=== PATIENT | female | born 1995 | race African-American/Black ===

== ENCOUNTER 2017-12-17 12:59 | Emergency (ER) | payer SELFPAY ==
[2017-12-17] MEDS ORDERED: NITROFURAN MACRO 100 MG CAP PO ONE (13:45)
[2017-12-17 13:50] LABS: Absolute Lymphocytes (CBC) 2.8 K/uL (0.7-4.9); Absolute Monocytes 0.8 K/uL (0.1-1.3); Absolute Neutrophil 11.8 K/uL (1.8-8.0); Basophils % 0.8 % (0-1.3); Eosinophils % 1.2 % (0-4.4); Hematocrit 42.1 % (36.0-45.0); Lymphocytes % 17.9 % (15.3-44.8); MCV 84.3 fL (80-100); MPV 8.2 fL (7.6-11.3); Monocytes % 4.9 % (3.3-12.3); RBC Red Blood Cell Count 4.99 M/uL (3.86-4.86)
[2017-12-17 14:17] LABS: BUN Blood Urea Nitrogen 8 mg/dL (6-20); Bicarbonate 25 mEq/L (21-31); Glucose Level 106 mg/dL (65-120); Potassium 3.4 mEq/L (3.6-5.0); Sodium Level 136 mEq/L (135-145)
[2017-12-17 14:44] LABS: Urine Bacteria >50 /HPF (<20); Urine Culture Reflex Order REFLEXED; Urine RBC 20-50 /HPF (NONE SEEN)
[2017-12-17 14:45] LABS: Urine Blood 2+ (NEG); Urine Glucose NEGATIVE (NEG); Urine Protein 2+ (NEG); Urine Specific Gravity 1.015 (1.005-1.030)
--- NOTE | 2017-12-17 15:09 | ER ---
Nurse's Notes [facility] Name: Tony Salas Age: 22 yrs Sex: Female : 1995 Arrival Date: 12/17/2017 Time: 13:02 Bed 12 Private MD: Diagnosis: Urinary tract infection, site not specified;Less than 8 weeks gestation of Presentation: 12/17 13:07 Presenting complaint: Patient states: Burning with urination and suprapubic pain since aj last night. Reports yellow discharge. Transition of care: patient was not received from another setting of care. Onset of symptoms was December 16, 2017. Initial Sepsis Screen: Does the patient meet any 2 criteria? No. Patient's initial sepsis screen is negative. Does the patient have a suspected source of infection? No. Patient's initial sepsis screen is negative. Care prior to arrival: None. 13:07 Method Of Arrival: Ambulatory aj 13:07 Acuity: MARCELLO 3 aj Triage Assessment: 13:08 General: Appears in no apparent distress. comfortable, Behavior is calm, cooperative, aj appropriate for age. Pain: Complains of pain in pelvis. Neuro: Level of Consciousness is awake, alert, obeys commands, Oriented to person, place, time, situation, Appropriate for age. Respiratory: Airway is patent Respiratory effort is even, unlabored, Respiratory pattern is regular, symmetrical. GI: No signs and/or symptoms were reported involving the gastrointestinal system. : Reports burning with urination, pain in suprapubic area. Derm: Skin is intact, is healthy with good turgor, Skin is pink, warm \T\ dry. normal. 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 - Social history:: Smoking status: Patient/guardian denies using tobacco. Screenin:10 Abuse screen: Denies threats or abuse. Denies injuries from another. Nutritional ed1 screening: No deficits noted. Tuberculosis screening: No symptoms or risk factors identified. Fall Risk None identified. Assessment: 13:10 General: Appears in no apparent distress. Behavior is calm, cooperative. Pain: ed1 Complains of pain in suprapubic area and right lower quadrant Pain does not radiate. Pain currently is 9 out of 10 on a pain scale. Quality of pain is described as burning, sharp, Pain began 1 day ago. Is continuous. Neuro: Level of Consciousness is awake, alert, obeys commands, Oriented to person, place, time, situation. Cardiovascular: Denies chest pain, Heart tones S1 S2 present Capillary refill < 3 seconds in bilateral fingers. Respiratory: Airway is patent Respiratory effort is even, unlabored, Respiratory pattern is regular, symmetrical, Breath sounds are clear bilaterally. GI: Abdomen is non-distended, Bowel sounds present X 4 quads. Abd is soft X 4 quads Abdomen is tender to palpation in suprapubic area and right lower quadrant Patient currently denies diarrhea, nausea, vomiting. : Reports burning with urination, urgency, urinary frequency, Patient is sexually active Method of control is none. EENT: No signs and/or symptoms were reported regarding the EENT system. Derm: Skin is intact, is healthy with good turgor, Skin is dry, Skin is normal, Skin temperature is warm. Musculoskeletal: Circulation, motion, and sensation intact. Range of motion: intact in all extremities. 13:10 Reassessment: I agree with assessment completed by BRIANA Haro. aa5 14:08 Reassessment: Patient appears in no apparent distress at this time. No changes from ed1 previously documented assessment. Patient and/or family updated on plan of care and expected duration. Pain level reassessed. Patient is alert, oriented x 3, equal unlabored respirations, skin warm/dry/pink. Patient states symptoms have not improved. 15:04 Reassessment: Patient appears in no apparent distress at this time. No changes from ed1 previously documented assessment. Patient and/or family updated on plan of care and expected duration. Pain level reassessed. Patient is alert, oriented x 3, equal unlabored respirations, skin warm/dry/pink. Patient states feeling better. Patient states symptoms have improved. Vital Signs: 13:08 BP 129 / 71; Pulse 91; Resp 16; Temp 98.3; Pulse Ox 99% on R/A; Weight 81.19 kg; Height aj 5 ft. 3 in. (160.02 cm); Pain 9/10; 14:08 BP 128 / 76; Pulse 87; Resp 16; Pulse Ox 100% on R/A; Pain 9/10; ed1 15:04 BP 129 / 76; Pulse 83; Resp 16; Pulse Ox 100% on R/A; Pain 7/10; ed1 13:08 Body Mass Index 31.71 (81.19 kg, 160.02 cm) ED Course: 13:02 Patient arrived in ED. sb2 13:03 Libby Butler F[facility]-C [facility]. kb 13:04 Parviz Servin MD is Attending Physician. kb 13:08 Triage completed. aj 13:08 Arm band placed on right wrist. Patient placed in an exam room. aj 13:10 Patient has correct armband on for positive identification. Call light in reach. ed1 13:21 Estrellita Browne LVN is Primary Nurse. ed1 13:48 Initial lab(s) drawn, by me, sent to lab. Urine collected: clean catch specimen, ed1 cloudy. Inserted saline lock: 20 gauge in right antecubital area, using aseptic technique. Blood collected. 14:17 No apparent distress. Resting quietly. Awaiting lab results. ed1 15:04 Resting quietly. Awaiting: Ultrasound. ed1 15:12 No provider procedures requiring assistance completed. IV discontinued, intact, ed1 bleeding controlled, No redness/swelling at site. Pressure dressing applied. Administered Medications: 13:49 Drug: Macrobid 100 mg Route: PO; ed1 14:38 Follow up: Response: No adverse reaction ed1 Outcome: 15:09 Discharge ordered by . kb 15:12 Discharged to home ambulatory. ed1 15:12 Condition: good 15:12 Discharge instructions given to patient, Instructed on discharge instructions, follow up and referral plans. medication usage, Demonstrated understanding of instructions, follow-up care, medications, Prescriptions given X 1. 15:13 Patient left the ED. ed1 Addendum: 12/20/2017 09:16 Addendum: Culture Results: Positive urine culture. No further action required. Bacteria i w sensitive to prescribed antibiotic. Signatures: Libby Butler FNP-C FNP-Cayla Pearson RN RN aj Williams, Irene, RN RN iw Calderon, Audri, RN RN aa5 Estrellita Browne LVN SSIS SSRS DEVELOPER ed1 Rafael, Radha sb2
--- NOTE | 2017-12-17 15:09 | EDPHYS ---
Physician Documentation [facility] Name: Tony Salas Age: 22 yrs Sex: Female : 1995 Arrival Date: 12/17/2017 Time: 13:02 Bed 12 Private MD: ED Physician Parviz Servin HPI: 12/17 15:10 This 22 yrs old Black Female presents to ER via Ambulatory with complaints of Pain With kb Urination, Abdominal Pain. 15:10 The patient presents with urinary symptoms, dysuria, frequency, hematuria. Onset: The kb symptoms/episode began/occurred yesterday. Modifying factors: The symptoms are alleviated by nothing, the symptoms are aggravated by urinating. Associated signs and symptoms: Pertinent positives: dysuria, hematuria, urinary frequency. Severity of symptoms: At their worst the symptoms were moderate, in the emergency department the symptoms are unchanged. The patient has not experienced similar symptoms in the past. The patient has not recently seen a physician. 15:12 Pt informed of positive test. 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 - Social history:: Smoking status: Patient/guardian denies using tobacco. ROS: 15:09 Constitutional: Negative for fever, chills, and weight loss, Eyes: Negative for injury, kb pain, redness, and discharge, Neck: Negative for injury, pain, and swelling, Cardiovascular: Negative for chest pain, palpitations, and edema, Respiratory: Negative for shortness of breath, cough, wheezing, and pleuritic chest pain, Abdomen/GI: Negative for abdominal pain, nausea, vomiting, diarrhea, and constipation, Back: Negative for injury and pain, MS/Extremity: Negative for injury and deformity, Skin: Negative for injury, rash, and discoloration, Neuro: Negative for headache, weakness, numbness, tingling, and seizure. 15:09 : Positive for urinary symptoms, urinary frequency, hematuria, burning with urination. Exam: 15:09 Constitutional: This is a well developed, well nourished patient who is awake, alert, kb and in no acute distress. Head/Face: Normocephalic, atraumatic. Chest/axilla: Normal chest wall appearance and motion. Nontender with no deformity. No lesions are appreciated. Cardiovascular: Regular rate and rhythm with a normal S1 and S2. No gallops, murmurs, or rubs. Normal PMI, no JVD. No pulse deficits. Respiratory: Lungs have equal breath sounds bilaterally, clear to auscultation and percussion. No rales, rhonchi or wheezes noted. No increased work of breathing, no retractions or nasal flaring. Abdomen/GI: Soft, non-tender, with normal bowel sounds. No distension or tympany. No guarding or rebound. No evidence of tenderness throughout. Skin: Warm, dry with normal turgor. Normal color with no rashes, no lesions, and no evidence of cellulitis. MS/ Extremity: Pulses equal, no cyanosis. Neurovascular intact. Full, normal range of motion. Neuro: Awake and alert, GCS 15, oriented to person, place, time, and situation. Cranial nerves II-XII grossly intact. Motor strength 5/5 in all extremities. Sensory grossly intact. Cerebellar exam normal. Normal gait. Vital Signs: 13:08 BP 129 / 71; Pulse 91; Resp 16; Temp 98.3; Pulse Ox 99% on R/A; Weight 81.19 kg; Height aj 5 ft. 3 in. (160.02 cm); Pain 9/10; 14:08 BP 128 / 76; Pulse 87; Resp 16; Pulse Ox 100% on R/A; Pain 9/10; ed1 15:04 BP 129 / 76; Pulse 83; Resp 16; Pulse Ox 100% on R/A; Pain 7/10; ed1 13:08 Body Mass Index 31.71 (81.19 kg, 160.02 cm) aj MDM: 13:12 Patient medically screened. kb 15:10 Data reviewed: vital signs, nurses notes. Data interpreted: Pulse oximetry: on room air kb is 100 %. Interpretation: normal. 15:12 Counseling: I had a detailed discussion with the patient and/or guardian regarding: the kb historical points, exam findings, and any diagnostic results supporting the discharge/admit diagnosis, lab results, the need for outpatient follow up, an OB/Gyne specialist, to return to the emergency department if symptoms worsen or persist or if there are any questions or concerns that arise at home. ED course: Pt does not want to stay for US. Educated on need for follow up with OB. Verbal understanding received. . 12/17 13:12 Order name: Urine Microscopic Only; Complete Time: 14:48 kb 12/17 13:32 Order name: Quantitative Hcg; Complete Time: 14:48 kb 12/17 13:32 Order name: Abo/rh Typing; Complete Time: 14:22 kb 12/17 13:32 Order name: Basic Metabolic Panel; Complete Time: 14:48 kb 12/17 13:32 Order name: CBC with Diff; Complete Time: 14:05 kb 12/17 13:34 Order name: Urine Dipstick--Ancillary (enter results); Complete Time: 14:48 bd 12/17 13:12 Order name: Urine Test (obtain specimen); Complete Time: 13:49 kb 12/17 13:12 Order name: Urine Dipstick-Ancillary (obtain specimen); Complete Time: 13:49 kb 12/17 13:32 Order name: IV Saline Lock; Complete Time: 13:49 kb 12/17 13:32 Order name: Labs collected and sent; Complete Time: 13:49 kb 12/17 13:34 Order name: Urine --Ancillary (enter results); Complete Time: 14:48 bd 12/17 14:44 Order name: Urine Culture EDUT 12/17 13:32 Order name: NPO; Complete Time: 13:49 kb Administered Medications: 13:49 Drug: Macrobid 100 mg Route: PO; ed1 14:38 Follow up: Response: No adverse reaction ed1 Disposition: 15:29 Co-signature as Attending Physician, Parviz Servin MD I agree with the assessment and flaquita plan of care. Disposition: 12/17/17 15:09 Discharged to Home. Impression: Urinary tract infection, site not specified, Less than 8 weeks gestation of . - Condition is Stable. - Discharge Instructions: First Trimester of , [id number], Urinary Tract Infection, [id number]. - Prescriptions for Macrobid 100 mg Oral Capsule - take 1 capsule by ORAL route every 12 hours for 7 days; 14 capsule. - Medication Reconciliation Form, Thank You Letter, Antibiotic Education, Prescription Opioid Use, Work release form form. - Follow up: Emergency Department; When: As needed; Reason: Worsening of condition. Follow up: Private Physician; When: 2 - 3 days; Reason: Recheck today's complaints, Continuance of care, Re-evaluation by your physician. Signatures: Dispatcher [employer] EDMS Libby Butler, BULLET LUBRICANT MIXER-C BULLET LUBRICANT MIXER-Cayla Pearson RN RN aj Anderson, Corey, MD MD cha Riggs, Erika, HELICOPTER CREW CHIEF HELICOPTER CREW CHIEF ed1 Corrections: (The following items were deleted from the chart) 15:13 15:09 12/17/2017 15:09 Discharged to Home. Impression: Urinary tract infection, site ed1 not specified; Less than 8 weeks gestation of . Condition is Stable. Forms are Medication Reconciliation Form, Thank You Letter, Antibiotic Education, Prescription Opioid Use. Follow up: Emergency Department; When: As needed; Reason: Worsening of condition. Follow up: Private Physician; When: 2 - 3 days; Reason: Recheck today's complaints, Continuance of care, Re-evaluation by your physician. kb
== END 2017-12-17 15:13 | disposition home or self-care (01) ==
LOC: ER 12:59
DX: O23.41 Unspecified infection of urinary tract in pregnancy, first trimester (principal)
CPT/HCPCS: 36415; 80048; 81003; 81015; 81025; 84702; 85025; 86900; 86901; 87077; 87086; 87088; 87186; 99284

== ENCOUNTER 2018-08-20 13:47 | Inpatient (IN) | payer OTHER ==
[2018-08-20] MEDS ORDERED: METHYLERGONOVINE 0.2MG/ML AMP IM PRN (14:09)
[2018-08-20] MEDS ORDERED: Ringers Lactate 1,000 ML IV PRN (14:09)
[2018-08-20] MEDS ORDERED: BUPIVACAINE 0.25% PF 10 ML VIAL IV PRN (14:14)
[2018-08-20] MEDS ORDERED: FENTANYL CITR 100 MCG/2 ML IV ONE (14:14)
[2018-08-20] MEDS ORDERED: ROPIVACAINE HCL 0.2% 20ML AMP SQ ONE (14:15)
[2018-08-20] MEDS ORDERED: LIDOCAINE 2% 20 ML MDV IV ONE (14:22)
[2018-08-20] MEDS ORDERED: PENICILLIN G POT 5 MU/100 ML BAG IV ONE (14:31)
[2018-08-20] MEDS ORDERED: Ringers Lactate 1,000 ML IV ONE (14:31)
[2018-08-20 14:52] LABS: RPR Titer ND
[2018-08-20 14:56] LABS: Urine Appearance CLEAR; Urine Bilirubin NEGATIVE (NEG); Urine Blood NEGATIVE (NEG); Urine Color YELLOW; Urine Glucose NEGATIVE (NEG); Urine Microscopic Reflex NO UMIC; Urine Protein NEGATIVE (NEG); Urine Urobilinogen 0.2 mg/dL (0.2-1.0)
[2018-08-20] MEDS ORDERED: PENICILLIN G POT 5 MU/100 ML VIAL IV SCH (15:00)
[2018-08-20] MEDS ORDERED: Ringers Lactate 1,000 ML IV SCH (15:00)
[2018-08-20 15:06] LABS: Absolute Lymphocytes (CBC) 2.6 K/uL (0.7-4.9); Absolute Monocytes 0.8 K/uL (0.1-1.3); Absolute Neutrophil 10.3 K/uL (1.8-8.0); Basophils % 0.3 % (0-1.3); Eosinophils % 0.4 % (0-4.4); Hematocrit 33.8 % (36.0-45.0); Lymphocytes % 18.8 % (15.3-44.8); Monocytes % 5.9 % (3.3-12.3); RBC Red Blood Cell Count 3.97 M/uL (3.86-4.86)
[2018-08-20 15:11] VITALS: BMI 29.0
[2018-08-20 15:13] LABS: Barbiturates NEGATIVE (NEGATIVE); Benzodiazepines NEGATIVE (NEGATIVE); Cocaine NEGATIVE (NEGATIVE); METHAMPHETAM NEGATIVE (NEGATIVE); Methadone NEGATIVE (NEGATIVE); Opiates NEGATIVE (NEGATIVE); Phencyclidine NEGATIVE (NEGATIVE); THC Cannibis NEGATIVE (NEGATIVE)
[2018-08-20] MEDS ORDERED: FENTANYL/BUPIVACAINE/NS/PF 200 MCG/100 ML BAG EP ONE (16:13)
[2018-08-20] MEDS ORDERED: PENICILLIN 2.5 MU in NA CHLORIDE 0.9% 100 ML IV SCH (17:00)
[2018-08-20] MEDS ORDERED: INFLUENZA VACCINE (for 3y+) 0.5 ML DOSE IMVAC ONE (18:00)
[2018-08-20] MEDS ORDERED: OXYTOCIN/LR 20 UNIT/1,000 ML BAG IV SCH (18:14)
[2018-08-20] MEDS ORDERED: OXYTOCIN/LR 20 UNIT/1,000 ML BAG IV ONE (18:26)
[2018-08-20] MEDS ORDERED: DOCUSATE NA/SENNA CONC 1 TAB PO PRN (19:54)
[2018-08-20] MEDS ORDERED: METHYLERGONOVINE 0.2 MG TAB PO PRN (19:54)
[2018-08-20] MEDS ORDERED: ACETAMINOPHEN 500 MG TAB PO PRN (19:54)
[2018-08-20] MEDS ORDERED: ONDANSETRON 4 MG (ODT) TAB PO PRN (19:54)
[2018-08-20] MEDS ORDERED: BISACODYL 10 MG RECTAL SUPP RECT PRN (19:54)
[2018-08-20 21:57] LABS: RPR (Rapid Plasma Reagin) NON-REACT (NON-REACT)
[2018-08-20] MEDS ORDERED: DIPHENHYDRAMINE 25 MG TAB/CAP PO ONE (22:03)
--- NOTE | 2018-08-20 22:22 | P.OBGYNHP ---
Certification for Inpatient Patient admitted to: Inpatient With expected LOS: <2 Midnights Patient will require the following post-hospital care: None Practitioner: I am a practitioner with admitting privileges, knowledge of patient current condition, hospital course, and medical plan of care. Services: Services provided to patient in accordance with Admission requirements found in Title 42 Section 412.3 of the Code of Federal Regulations Patient History Date of Service: 08/20/18 Reason for admission: LABOR History of Present Illness: Patient is a 23 y/o at 38 weeks and 6 days gestation who presents in labor. Patient was examined by her doctor earlier today and was found to be 3cm dilated and she is now 4-5 cm dilated. She has obtained care at [facility] high risk clinic. She was considered high risk due to having sickle cell trait. The FOB was not tested since he is in assisted. records were reviewed. Patient had transferred to [facility] during her from [facility]. Today she denies vaginal bleeding, no leakage of fluid. She reports contractions every 3-4 minutes and reports good movements. Allergies No Known Allergies Allergy (Unverified 10/08/17 23:26) Home Medications: NK [No Home Meds] 08/20/18 - Past Medical/Surgical History Has patient received pneumonia vaccine in the past: No Diabetic: No -: Sickle cell trait carrier -: NVD x1 - Family History Family History: Reviewed- Non-Contributory - Social History Smoking Status: Former smoker Alcohol use: No CD- Drugs: No Caffeine use: Yes Place of Residence: Home Review of Systems 10-point ROS is otherwise unremarkable Physical Examination - Vital Signs Temperature: 98 F Blood Pressure: 103/62 Pulse: 76 Respirations: 18 - General General: Alert, Oriented x3, Mild distress HEENT: Atraumatic, Normocephalic Neck: Supple Respiratory: Normal air movement Cardiovascular: No edema, Normal pulses Breasts: Normal configuration, Normal contours Gastrointestinal: Other (gravid abdomen) Musculoskeletal: No clubbing, No swelling - Female Pelvic External genitalia: Normal Vagina: Normal, [place], Moist Cervix: Dilation (4-5 cm), Effacement (50%), station (-3) Uterus: Gravid Adnexa: Unable to evaluate - Obstetrics heart rate tracing: Category 2 Contractions: Frequency (every 3-5 minutes) Amniotic membrane: Intact Laboratory Data (last 24 hrs) 08/20/18 14:30: WBC 13.8 H, Hgb 11.8 L, Hct 33.8 L, Plt Count 238 Microbiology Data (last 24 hrs): GBS positive (records from [facility]) Imagings Data: Recent ultrasound report from [facility] - normal QUINTIN and good growth Assessment and Plan - Plan Patient is a 23 y/o at 38 weeks and 6 days gestation in labor with GBS positive. Plan is to admit patient for management of normal labor. Will begin penicillin for GBS prophylaxis. Pitocin will be started for labor augmentation as needed. Epidural placement at patient's request. Continuous maternal/ monitoring. Discharge Plan: Home Plan to discharge in: 48 Hours - Advance Directives Does patient have a Living Will: No Does patient have a Durable POA for Healthcare: No
--- NOTE | 2018-08-20 22:29 | P.OP ---
Date of Service: 08/20/18 Findings and Operative Technique Patient is a 23 y/o at 38 weeks and 6 days gestation in labor with GBS positive who was admitted for management of labor. She received an epidural. She had SROM. Pitocin was then started for labor augmentation. She then delivered a viable femaleinfant in cephalic presentation on 08/20/18 at 19:38. was delivered over a midline episiotomy. Once the infant was delivered the nose and mouth were suctioned with a suction bulb and cord was clamped and cut and infant was placed on the mother's abdomen for skin to skin bonding. Attention was then turned to the placenta which was delivered with gentle traction at 19:40. Placenta was then inspected and noted to be intact. Attention was then turned to the episiotomy which was repaired with a 2.0 vicryl in a usual fashion. EBL was 250cc. First stage of labor was 3 hours and 14 min. Second stage of labor was 38 minutes. APGARS were 9 and 10. Weight was found to be 6 lbs and 5 ounces. Both mom and baby are doing well.
[2018-08-21] MEDS: IBUPROFEN 200 MG TAB PO PRN ×2 (00:25→18:13)
[2018-08-21 07:30] LABS: Absolute Lymphocytes (CBC) 2.5 K/uL (0.7-4.9); Absolute Monocytes 0.8 K/uL (0.1-1.3); Absolute Neutrophil 11.5 K/uL (1.8-8.0); Basophils % 0.5 % (0-1.3); Eosinophils % 0.3 % (0-4.4); Hematocrit 32.6 % (36.0-45.0); Lymphocytes % 16.8 % (15.3-44.8); MPV 8.4 fL (7.6-11.3); Monocytes % 5.2 % (3.3-12.3); RBC Red Blood Cell Count 3.79 M/uL (3.86-4.86)
[2018-08-21] MEDS: Oxycodone HCl/Acetaminophen 1 TAB TAB PO PRN ×2 (07:35→13:09)
[2018-08-22] MEDS: Oxycodone HCl/Acetaminophen 1 TAB TAB PO PRN ×2 (00:19→07:35)
[2018-08-22] MEDS: IBUPROFEN 200 MG TAB PO PRN (05:13)
[2018-08-22 07:46] VITALS: BP 121/61; TEMP 95.7
[2018-08-23 04:00] LABS: HBsAG Nonreactive (Nonreactive)
== END 2018-08-22 08:50 | disposition home or self-care (01) | DRG 807 ==
LOC: L&D 13:47 → 2ND-WC 14:09
PROVIDERS: ADMIT Student in an Organized Health Care Education/Training Program; ATTEND Student in an Organized Health Care Education/Training Program
PROC: 10E0XZZ Delivery of Products of Conception, External Approach (ICD-10-PCS; principal; 2018-08-20)
PROC: 0W8NXZZ Division of Female Perineum, External Approach (ICD-10-PCS; 2018-08-20)
DX: O99.824 Streptococcus B carrier state complicating childbirth (principal); Z37.0 Single live birth; Z3A.38 38 weeks gestation of pregnancy
CPT/HCPCS: 36415; 80307; 81003; 85025; 86592; 86850; 86900; 86901; 87340; 99218; J2210; J2590; J3010

== ENCOUNTER 2018-10-15 12:02 | Emergency (ER) | payer OTHER ==
--- NOTE | 2018-10-15 14:36 | ER ---
Nurse's Notes [facility] Name: Tony Salas Age: 23 yrs Sex: Female : 1995 Arrival Date: 10/15/2018 Time: 12:03 Bed 12 Private MD: Diagnosis: Dental Pain Presentation: 10/15 12:10 Presenting complaint: Patient states: right sided facial swelling, right ear pain sv started last night. Reports having a "bad tooth.". Transition of care: patient was not received from another setting of care. Onset of symptoms was October 14, 2018. Care prior to arrival: None. 12:10 Method Of Arrival: Ambulatory sv 12:10 Acuity: MARCELLO 4 sv 15:00 Risk Assessment: Do you want to hurt yourself or someone else? Patient reports no dm5 desire to harm self or others. Initial Sepsis Screen: Does the patient meet any 2 criteria? No. Patient's initial sepsis screen is negative. Does the patient have a suspected source of infection? No. Patient's initial sepsis screen is negative. Triage Assessment: 12:11 General: Appears in no apparent distress. uncomfortable, well developed, Behavior is sv calm, cooperative, appropriate for age. Pain: Complains of pain in right ear, right zygomatic area and right cheek Pain currently is 10 out of 10 on a pain scale. Neuro: Level of Consciousness is awake, alert, obeys commands, Oriented to person, place, time, situation, Gait is steady, Speech is normal. Respiratory: Respiratory effort is even, unlabored, Respiratory pattern is regular, symmetrical. Historical: - Allergies: 12:10 No Known Allergies; sv - PMHx: 12:10 None; sv - PSHx: 12:10 None; sv - Immunization history:: Adult Immunizations up to date. - Social history:: Smoking status: Patient/guardian denies using tobacco. - Ebola Screening: : Patient negative for fever greater than or equal to 101.5 degrees Fahrenheit, and additional compatible Ebola Virus Disease symptoms Patient denies exposure to infectious person Patient denies travel to an Ebola-affected area in the 21 days before illness onset No symptoms or risks identified at this time. Screenin:00 Abuse screen: Denies threats or abuse. Denies injuries from another. Nutritional dm5 screening: No deficits noted. Tuberculosis screening: No symptoms or risk factors identified. Fall Risk None identified. Assessment: 15:00 General: Appears in no apparent distress. uncomfortable, Behavior is calm, cooperative. dm5 Pain: Complains of pain in face. Neuro: Level of Consciousness is awake, alert, obeys commands, Oriented to person, place, time, situation. Respiratory: Airway is patent Respiratory effort is even, unlabored, relaxed, Respiratory pattern is regular, symmetrical. Vital Signs: 12:10 BP 139 / 83; Pulse 79; Resp 16; Temp 97.4; Pulse Ox 100% ; Weight 72.57 kg; Height 5 sv ft. 4 in. (162.56 cm); Pain 10/10; 15:00 BP 129 / 80; Pulse 80; Resp 18; Temp 98.; Pulse Ox 100% ; dm5 12:10 Body Mass Index 27.46 (72.57 kg, 162.56 cm) sv ED Course: 12:03 Patient arrived in ED. as 12:10 Triage completed. sv 12:11 Arm band placed on Patient placed in waiting room, Patient notified of wait time. 14:08 Levar Weaver PA is PHCP. [facility] 14:08 Kyle Jain MD is Attending Physician. [facility] 15:00 Patient has correct armband on for positive identification. dm5 15:00 No provider procedures requiring assistance completed. Patient did not have IV access dm5 during this emergency room visit. 15:01 Kaylen Saleem, RN is Primary Nurse. dm5 Administered Medications: No medications were administered Outcome: 14:36 Discharge ordered by . [facility] 15:00 Discharged to home ambulatory. dm5 15:00 Condition: good 15:00 Discharge instructions given to patient, Instructed on discharge instructions, follow up and referral plans. medication usage, Demonstrated understanding of instructions. 15:02 Patient left the ED. dm5 Signatures: Kaylen Saleem, JEREMIAS RN Agatha Toscano RN RN Levar Weaver PA PA jmm Martinez, Amelia as
--- NOTE | 2018-10-15 14:37 | EDPHYS ---
Physician Documentation [facility] Name: Tony Salas Age: 23 yrs Sex: Female : 1995 Arrival Date: 10/15/2018 Time: 12:03 Bed 12 Private MD: ED Physician Kyle Jain HPI: 10/15 14:32 This 23 yrs old Black Female presents to ER via Ambulatory with complaints of Facial jmm Swelling. 14:32 The patient presents with pain, swelling. Onset: The symptoms/episode began/occurred jmm gradually, 1 day(s) ago. Patient complaints of right sided dental pain and facial swelling beginning last night. Denies fever. States having ongoing pain due to a cracked tooth. . Historical: - Allergies: 12:10 No Known Allergies; sv - PMHx: 12:10 None; sv - PSHx: 12:10 None; sv - Immunization history:: Adult Immunizations up to date. - Social history:: Smoking status: Patient/guardian denies using tobacco. - Ebola Screening: : Patient negative for fever greater than or equal to 101.5 degrees Fahrenheit, and additional compatible Ebola Virus Disease symptoms Patient denies exposure to infectious person Patient denies travel to an Ebola-affected area in the 21 days before illness onset No symptoms or risks identified at this time. ROS: 14:32 Constitutional: Negative for fever, chills, and weight loss. jmm 14:32 ENT: Positive for dental pain. 14:32 All other systems are negative. Exam: 14:32 Constitutional: This is a well developed, well nourished patient who is awake, alert, jmm and in no acute distress. 14:32 Chest/axilla: Normal chest wall appearance and motion. Cardiovascular: Regular rate and rhythm. No edema appreciated Respiratory: Normal respirations, no respiratory distress appreciated Back: Normal ROM Skin: General appearance color normal MS/ Extremity: Moves all extremities, no obvious deformities appreciated, no edema noted to the lower extremities Neuro: Awake and alert, normal gait 14:32 Head/face: no swelling is appreciated. 14:32 ENT: Dental exam: dental caries, that is moderate, specifically in the upper right first molar (#3) and upper right second bicuspid (#4), gum swelling. 14:32 Neck: ROM/movement: is normal. Vital Signs: 12:10 BP 139 / 83; Pulse 79; Resp 16; Temp 97.4; Pulse Ox 100% ; Weight 72.57 kg; Height 5 sv ft. 4 in. (162.56 cm); Pain 10/10; 15:00 BP 129 / 80; Pulse 80; Resp 18; Temp 98.; Pulse Ox 100% ; dm5 12:10 Body Mass Index 27.46 (72.57 kg, 162.56 cm) sv MDM: 14:32 Patient medically screened. [facility] 14:32 Data reviewed: vital signs, nurses notes. Counseling: I had a detailed discussion with macrina the patient and/or guardian regarding: the historical points, exam findings, and any diagnostic results supporting the discharge/admit diagnosis, the need for outpatient follow up, to return to the emergency department if symptoms worsen or persist or if there are any questions or concerns that arise at home. ED course: No swelling is appreciated to the right cheek, patient is advised to follow up with dentist. patient is advised to follow up with dentist and otherwise given strict return precautions. patient understood and agrees with the plan of care. . Administered Medications: No medications were administered Disposition: 15:24 Co-signature as Attending Physician, Kyle Jain MD I agree with the assessment and kdr plan of care. Disposition: 10/15/18 14:36 Discharged to Home. Impression: Dental Pain. - Condition is Stable. - Discharge Instructions: Dental Pain. - Prescriptions for penicillin V potassium 500 mg Oral tablet - take 1 tablet by ORAL route 4 times per day; 40 tablet. Ultracet 37.5- 325 mg Oral Tablet - take 1 tablet by ORAL route every 6 hours - for up to 5 days; do not exceed 8 tablets per day.; 12 tablet. - Medication Reconciliation Form, Thank You Letter, Antibiotic Education, Prescription Opioid Use form. - Follow up: Private Physician; When: 2 - 3 days; Reason: Recheck today's complaints, Continuance of care, Re-evaluation by your physician. Signatures: Kaylen Saleem, RN JEREMIAS dm5 Agatha Chow RN RN Kyle Garcia MD MD kdr Mickail, Joel, PA PA [facility] Corrections: (The following items were deleted from the chart) 15:02 14:36 10/15/2018 14:36 Discharged to Home. Impression: Dental Pain. Condition is dm5 Stable. Forms are Medication Reconciliation Form, Thank You Letter, Antibiotic Education, Prescription Opioid Use. Follow up: Private Physician; When: 2 - 3 days; Reason: Recheck today's complaints, Continuance of care, Re-evaluation by your physician. macrina
[2018-10-15 15:07] VITALS: BP 139/83; TEMP 97.4; O2SAT 100
== END 2018-10-15 15:02 | disposition home or self-care (01) ==
LOC: ER 12:02
DX: K08.89 Other specified disorders of teeth and supporting structures (principal)
CPT/HCPCS: 99281

== ENCOUNTER 2018-11-16 14:32 | Emergency (ER) | payer OTHER, SELFPAY ==
--- OUTSIDE RECORDS SUMMARY | 2018-11-16 14:35 | XMS REPORT ---
:1995 [facility] Address [address] [place] [address] Dr. Landa [address] [place] [id number] Care Team Providers Name Role Phone Unavailable Unavailable Unavailable Problems This patient has no known problems. Allergies, Adverse Reactions, Alerts This patient has no known allergies or adverse reactions. Medications This patient has no known medications.
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
[2018-11-16 15:38] VITALS: BP 129/96; TEMP 98.7; O2SAT 100
== END 2018-11-16 15:31 | disposition home or self-care (01) ==
LOC: ER 14:32
DX: M54.5 Low back pain (principal); V49.40XA Driver injured in collision with unspecified motor vehicles in traffic accident, initial encounter
CPT/HCPCS: 99282

== ENCOUNTER 2019-07-11 18:12 | Emergency (ER) | payer SELFPAY ==
--- OUTSIDE RECORDS SUMMARY | 2019-07-11 18:14 | XMS REPORT ---
:1995 [facility] Address [address] [place] [address] Care Team Providers Name Role Phone Unavailable Unavailable Unavailable Problems This patient has no known problems. Allergies, Adverse Reactions, Alerts This patient has no known allergies or adverse reactions. Medications This patient has no known medications.
--- NOTE | 2019-07-11 19:37 | ER ---
Nurse's Notes [facility] Name: Tony Salas Age: 24 yrs Sex: Female : 1995 Arrival Date: 07/11/2019 Time: 18:14 Bed 12 Private MD: Diagnosis: Unspecified lump in breast Presentation: 07/11 18:48 Presenting complaint: Patient states: lump to right breast that she noticed 2 days ago. aa5 Pt reports pain to site. Denies redness to breast. Transition of care: patient was not received from another setting of care. Onset of symptoms was July 2019. Risk Assessment: Do you want to hurt yourself or someone else? Patient reports no desire to harm self or others. Initial Sepsis Screen: Does the patient meet any 2 criteria? No. Patient's initial sepsis screen is negative. Does the patient have a suspected source of infection? No. Patient's initial sepsis screen is negative. Care prior to arrival: None. 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 - Social history:: Smoking status: Patient uses tobacco products, smokes one-half pack cigarettes per day. - Ebola Screening: : No symptoms or risks identified at this time. Screenin:27 Abuse screen: Denies threats or abuse. Denies injuries from another. Nutritional rr5 screening: No deficits noted. Tuberculosis screening: No symptoms or risk factors identified. Fall Risk None identified. Total Iglesias Fall Scale indicates No Risk (0-24 pts). Assessment: 19:15 General: Appears in no apparent distress. uncomfortable, Behavior is calm, cooperative, rr5 appropriate for age. Pain: Complains of pain in right breast Pain does not radiate. Pain currently is 8 out of 10 on a pain scale. Quality of pain is described as aching, Pain began 2-3 days ago. Is intermittent. Neuro: Level of Consciousness is awake, alert, obeys commands, Oriented to person, place, time, situation, Appropriate for age. Cardiovascular: Capillary refill < 3 seconds Patient's skin is warm and dry. Respiratory: Airway is patent Respiratory effort is even, unlabored, Respiratory pattern is regular, symmetrical. GI: No signs and/or symptoms were reported involving the gastrointestinal system. : No signs and/or symptoms were reported regarding the genitourinary system. EENT: No signs and/or symptoms were reported regarding the EENT system. Derm: Skin is intact, Skin temperature is warm. Musculoskeletal: Circulation, motion, and sensation intact. Capillary refill < 3 seconds, Reports pain in right breast right breast lump. 19:30 Reassessment: ED provider examining the patient assisted by shekhar charge nurse. rr5 19:51 Reassessment: Patient appears in no apparent distress at this time. Patient is alert, rr5 oriented x 3, equal unlabored respirations, skin warm/dry/pink. discharge instruction given and explained without complaints made, verbalized understanding. Vital Signs: 18:49 BP 135 / 96; Pulse 88; Resp 18 S; Temp 99.1(O); Pulse Ox 100% on R/A; Weight 83.01 kg aa5 (R); Height 5 ft. 3 in. (160.02 cm) (R); Pain 8/10; 19:52 BP 131 / 85; Pulse 80; Resp 16; Temp 98; Pulse Ox 99% ; rr5 18:49 Body Mass Index 32.42 (83.01 kg, 160.02 cm) aa5 ED Course: 18:14 Patient arrived in ED. rg4 18:47 Arm band placed on. aa5 18:48 Triage completed. aa5 19:03 Kyle Jain MD is Attending Physician. kdr 19:13 Jaspreet Contreras, JEREMIAS is Primary Nurse. rr5 19:28 Patient has correct armband on for positive identification. Call light in reach. rr5 19:52 No provider procedures requiring assistance completed. Patient did not have IV access rr5 during this emergency room visit. Administered Medications: No medications were administered Outcome: 19:36 Discharge ordered by . kdr 19:52 Discharged to home ambulatory. rr5 19:52 Condition: stable 19:52 Discharge instructions given to patient, Instructed on discharge instructions, follow up and referral plans. medication usage, Demonstrated understanding of instructions, follow-up care, medications, Prescriptions given X 1. 19:52 Patient left the ED. rr5 Signatures: Kyle Jain MD MD kdr Naomi Jimenez RN RN aa5 Gali Jones4 Jaspreet Contreras RN RN rr5
--- NOTE | 2019-07-11 19:37 | EDPHYS ---
Physician Documentation [facility] Name: Tony Salas Age: 24 yrs Sex: Female : 1995 Arrival Date: 07/11/2019 Time: 18:14 Bed 12 Private MD: ED Physician Kyle Jain HPI: 07/11 19:40 This 24 yrs old Black Female presents to ER via Ambulatory with complaints of Breast kdr Lump. 19:40 The patient or guardian reports chest pain that is located primarily in the right kdr breast, \R\ 1:00 position. The pain does not radiate. Associated signs and symptoms: The patient has no apparent associated signs or symptoms. The chest pain is described as aching. Duration: The patient or guardian reports a single episode, that is still ongoing, and unchanged. Modifying factors: The symptoms are alleviated by nothing. the symptoms are aggravated by palpation of area. Severity of pain: At its worst the pain was very mild in the emergency department the pain is unchanged. The patient has not experienced similar symptoms in the past. The patient has not recently seen a physician. 2 days since first notced. 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 - Social history:: Smoking status: Patient uses tobacco products, smokes one-half pack cigarettes per day. - Ebola Screening: : No symptoms or risks identified at this time. ROS: 19:40 Constitutional: Negative for fever, chills, and weight loss, Eyes: Negative for injury, kdr pain, redness, and discharge. 19:40 Cardiovascular: Positive for chest pain, of the right breast. Exam: 19:40 Chest/axilla: Inspection: normal, Palpation: tenderness, that is mild, of the right kdr breast. 19:57 Constitutional: This is a well developed, well nourished patient who is awake, alert, kdr and in no acute distress. Vital Signs: 18:49 BP 135 / 96; Pulse 88; Resp 18 S; Temp 99.1(O); Pulse Ox 100% on R/A; Weight 83.01 kg aa5 (R); Height 5 ft. 3 in. (160.02 cm) (R); Pain 8/10; 19:52 BP 131 / 85; Pulse 80; Resp 16; Temp 98; Pulse Ox 99% ; rr5 18:49 Body Mass Index 32.42 (83.01 kg, 160.02 cm) aa5 MDM: 19:36 Patient medically screened. kdr 19:40 Data reviewed: vital signs, nurses notes. Counseling: I had a detailed discussion with kdr the patient and/or guardian regarding: the historical points, exam findings, and any diagnostic results supporting the discharge/admit diagnosis, the need for outpatient follow up. Administered Medications: No medications were administered Disposition: 07/11/19 19:36 Discharged to Home. Impression: Unspecified lump in breast. - Condition is Stable. - Discharge Instructions: Breast Cyst, Breast Self-Awareness, [id number]. - Prescriptions for Tramadol 50 mg Oral Tablet - take 1 tablet by ORAL route every 8 hours as needed; 12 tablet. - Medication Reconciliation Form, Thank You Letter, Prescription Opioid Use form. - Follow up: Private Physician; When: 2 - 3 days; Reason: Further diagnostic work-up, Recheck today's complaints, Continuance of care, Re-evaluation by your physician. - Problem is new. - Symptoms are unchanged. - Notes: Very important to get this lump evaluated at your earliest convenience. Signatures: Kyle Jain MD MD kdr Naomi Jimenez RN RN aa5 Jaspreet Contreras RN RN rr5 Corrections: (The following items were deleted from the chart) 19:52 19:36 07/11/2019 19:36 Discharged to Home. Impression: Unspecified lump in breast. rr5 Condition is Stable. Forms are Medication Reconciliation Form, Thank You Letter, Antibiotic Education, Prescription Opioid Use. Follow up: Private Physician; When: 2 - 3 days; Reason: Further diagnostic work-up, Recheck today's complaints, Continuance of care, Re-evaluation by your physician. Problem is new. Symptoms are unchanged. kdr
[2019-07-12 00:54] VITALS: BP 131/85; TEMP 98; O2SAT 99
== END 2019-07-11 19:52 | disposition home or self-care (01) ==
LOC: ER 18:12
DX: N63.0 Unspecified lump in unspecified breast (principal); F17.210 Nicotine dependence, cigarettes, uncomplicated
CPT/HCPCS: 99282

== ENCOUNTER 2019-07-21 18:32 | Emergency (ER) | payer SELFPAY ==
--- OUTSIDE RECORDS SUMMARY | 2019-07-21 18:34 | XMS REPORT ---
:1995 [facility] [address] [place] [address] Care Team Providers Name Role Phone Unavailable Unavailable Unavailable Problems This patient has no known problems. Allergies, Adverse Reactions, Alerts This patient has no known allergies or adverse reactions. Medications This patient has no known medications.
[2019-07-21] MEDS ORDERED: HYDROCODONE/APAP 5/325 MG TAB ONE (20:10)
--- NOTE | 2019-07-21 20:12 | ER ---
Nurse's Notes [facility] Name: Tony Salas Age: 24 yrs Sex: Female : 1995 Arrival Date: 07/21/2019 Time: 18:36 Bed 27 Private MD: Diagnosis: Unspecified lump in breast Presentation: 07/21 18:48 Presenting complaint: Patient states: i have a lump on my RIGHT breast, i noticed it tw2 about Thanksgiving, i came here and they told me to go to a women doctor but i make too much and i cant get medicaid, i had nipple ring that i took out about a week, it feels warm to the touch compared to the other one. Transition of care: patient was not received from another setting of care. Onset of symptoms was July 21, 2019. Risk Assessment: Do you want to hurt yourself or someone else? Patient reports no desire to harm self or others. Initial Sepsis Screen: Does the patient meet any 2 criteria? No. Patient's initial sepsis screen is negative. Does the patient have a suspected source of infection? No. Patient's initial sepsis screen is negative. Care prior to arrival: None. 18:48 Method Of Arrival: Ambulatory tw2 18:48 Acuity: MARCELLO 3 tw2 Triage Assessment: 18:50 General: Appears in no apparent distress. Behavior is calm, cooperative, appropriate tw2 for age. Pain: Complains of pain in right breast. 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 - Social history:: Smoking status: . - Ebola Screening: : Patient denies travel to an Ebola-affected area in the 21 days before illness onset. Screenin:20 Abuse screen: Denies threats or abuse. Nutritional screening: No deficits noted. tr5 Tuberculosis screening: No symptoms or risk factors identified. Fall Risk None identified. Assessment: 19:20 General: Appears uncomfortable, Behavior is calm, cooperative, appropriate for age. tr5 Pain: Complains of pain in right breast Pain radiates to back. Neuro: Level of Consciousness is awake, alert, obeys commands, Oriented to person, place, time, Credit Card Interviewer are equal bilaterally Moves all extremities. Cardiovascular: Heart tones present Capillary refill < 3 seconds. Respiratory: Airway is patent Respiratory effort is even, unlabored. GI: No signs and/or symptoms were reported involving the gastrointestinal system. : No signs and/or symptoms were reported regarding the genitourinary system. EENT: No signs and/or symptoms were reported regarding the EENT system. Derm: No signs and/or symptoms reported regarding the dermatologic system. Musculoskeletal: No signs and/or symptoms reported regarding the musculoskeletal system. Vital Signs: 18:51 BP 132 / 89; Pulse 86; Resp 17; Temp 98.4(O); Pulse Ox 100% on R/A; Weight 83.01 kg tw2 (R); Height 5 ft. 2 in. (157.48 cm); Pain 9/10; 18:51 Body Mass Index 33.47 (83.01 kg, 157.48 cm) tw2 ED Course: 18:36 Patient arrived in ED. mr 18:50 Triage completed. tw2 18:50 Arm band placed on. tw2 19:07 Phillip Crawford FNP-C is [facility]. la1 19:07 Gio Vogt MD is Attending Physician. la1 19:20 Bed in low position. Call light in reach. Side rails up X 1. tr5 19:39 Ba Smith RN is Primary Nurse. tr5 20:53 No provider procedures requiring assistance completed. Patient did not have IV access tr5 during this emergency room visit. Administered Medications: 20:14 Drug: [place] 5 mg-325 mg 1 tabs Route: PO; tr5 Outcome: 20:11 Discharge ordered by . la1 20:53 Discharged to home tr5 20:53 Condition: stable 20:53 Discharge instructions given to patient, Instructed on discharge instructions, follow up and referral plans. Demonstrated understanding of instructions, follow-up care. 20:54 Patient left the ED. tr5 Signatures: Adarsh Denise lemus Phillip Crawford FNP-C FNP-Cla1 Cassie Bain RN RN tw2 Ba Smith RN RN tr5
--- NOTE | 2019-07-21 20:12 | EDPHYS ---
Physician Documentation [facility] Name: Tony Salas Age: 24 yrs Sex: Female : 1995 Arrival Date: 07/21/2019 Time: 18:36 Bed 27 Private MD: ED Physician Gio Vgot HPI: 07/21 20:04 This 24 yrs old Black Female presents to ER via Ambulatory with complaints of Breast la1 Lump. 20:04 Lump. Description: The affected area is moderate sized, approximately 3 cm(s), la1 localized, well demarcated, located in the right breast. Onset: The symptoms/episode began/occurred 2 week(s) ago. Possible cause(s): unknown. Associated signs and symptoms: Pertinent negatives: erythema, fever, nausea, shortness of breath, swelling, vomiting. Modifying factors: the symptoms are alleviated by nothing, the symptoms are aggravated by nothing. Severity of symptoms: At their worst the symptoms were mild. The patient has been recently seen at the [facility] Emergency Department, this week, for similar complaints instructed to FU with [facility]. Pt reports she noticed a right sided breast lump shortly after Thanksgiving, has been trying to get in to the [facility] doctor for mammogram but is having problems with her insurance, presents today hoping for antibiotics or other intervention. . 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 - Social history:: Smoking status: . - Ebola Screening: : Patient denies travel to an Ebola-affected area in the 21 days before illness onset. ROS: 20:07 Constitutional: Negative for fever, chills, and weight loss, Eyes: Negative for injury, la1 pain, redness, and discharge, ENT: Negative for injury, pain, and discharge, Neck: Negative for injury, pain, and swelling, Cardiovascular: Negative for chest pain, palpitations, and edema, Respiratory: Negative for shortness of breath, cough, wheezing, and pleuritic chest pain, Abdomen/GI: Negative for abdominal pain, nausea, vomiting, diarrhea, and constipation, Back: Negative for injury and pain, MS/Extremity: Negative for injury and deformity, Skin: + for breast lump Neuro: Negative for headache, weakness, numbness, tingling, and seizure. Exam: 20:08 Constitutional: This is a well developed, well nourished patient who is awake, alert, la1 and in no acute distress. Head/Face: Normocephalic, atraumatic. Eyes: Pupils equal round and reactive to light, extra-ocular motions intact. Periorbital areas with no swelling, redness, or edema. Neck: No Meningismus. Chest/axilla: Normal chest wall appearance and motion. Cardiovascular: Regular rate and rhythm with a normal S1 and S2. No gallops, murmurs, or rubs. Normal PMI, no JVD. No pulse deficits. Respiratory: Lungs have equal breath sounds bilaterally, clear to auscultation No rales, rhonchi or wheezes noted. No increased work of breathing, no retractions or nasal flaring. Abdomen/GI: Soft, non-tender, with normal bowel sounds. No distension No guarding or rebound. No evidence of tenderness throughout. 20:08 Chest/axilla: Inspection: normal, no abrasion, no cellulitis, no ecchymosis, no paradoxical chest wall movement, Axilla: no acute changes, lymphadenopathy, is not appreciated, Breasts: abscess, not appreciated, cellulitis, is not appreciated, mass(es), that is moderate-sized, in the right breast, that is non-tender, that is freely movable, at about 2 o'clock , nipple discharge, is not appreciated, rash, is not appreciated, swelling, is not appreciated, tenderness, is not appreciated, Lymph nodes: lymphadenopathy is not appreciated. Vital Signs: 18:51 BP 132 / 89; Pulse 86; Resp 17; Temp 98.4(O); Pulse Ox 100% on R/A; Weight 83.01 kg tw2 (R); Height 5 ft. 2 in. (157.48 cm); Pain 9/10; 18:51 Body Mass Index 33.47 (83.01 kg, 157.48 cm) tw2 MDM: 19:10 Patient medically screened. la1 20:10 Differential diagnosis: fibrocystic changes, breast CA, breast abscess. Data reviewed: la1 vital signs, nurses notes, I have discussed the patient's presentation/case with the attending Emergency Department Physician; and as a result, I will discharge patient. Data interpreted: Pulse oximetry: on room air is 100 %. Interpretation: normal. Counseling: I had a detailed discussion with the patient and/or guardian regarding: the historical points, exam findings, and any diagnostic results supporting the discharge/admit diagnosis, the need for outpatient follow up, an OB/Gyne specialist, to return to the emergency department if symptoms worsen or persist or if there are any questions or concerns that arise at home. Special discussion: I discussed with the patient/guardian in detail that at this point there is no indication for admission to the hospital. It is understood, however, that if the symptoms persist or worsen the patient needs to return immediately for re-evaluation. Further emergent ED testing is not indicated at this point in time. I discussed with the patient/guardian in detail the need to arrange with the PCP or specialist further outpatient testing, mammogram. Based on the history and exam findings, there is no indication for further emergent testing or inpatient evaluation. I discussed with the patient/guardian the need to see the OB Gyne specialist for further evaluation of the symptoms. I discussed with the patient/guardian that the patient's current presentation does not indicate dosing of antibiotics. They should follow-up with their primary care provider and return if the symptoms persist or progress. Administered Medications: 20:14 Drug: [place] 5 mg-325 mg 1 tabs Route: PO; tr5 Disposition: 07/22 04:51 Co-signature as Attending Physician, Gio Vogt MD I agree with the assessment and tw4 plan of care. Disposition: 07/21/19 20:11 Discharged to Home. Impression: Unspecified lump in breast. - Condition is Stable. - Discharge Instructions: Breast Cyst, Breast Self-Awareness, [id number], Fibrocystic Breast Changes, [id number]. - Medication Reconciliation Form, Thank You Letter, Work release form form. - Follow up: Private Physician; When: 2 - 3 days; Reason: Recheck today's complaints, Re-evaluation by your physician. - Problem is an ongoing problem. - Symptoms are unchanged. Signatures: Phillip Crawford, PHLEBOTOMIST MEDICAL LAB ASSISTANT-C PHLEBOTOMIST MEDICAL LAB ASSISTANT-Cla1 Cassie Bain RN RN tw2 Gio Vogt MD MD tw4 Ba Smith RN RN tr5 Corrections: (The following items were deleted from the chart) 07/21 20:54 20:11 07/21/2019 20:11 Discharged to Home. Impression: Unspecified lump in breast. tr5 Condition is Stable. Forms are Medication Reconciliation Form, Thank You Letter, Antibiotic Education, Prescription Opioid Use. Follow up: Private Physician; When: 2 - 3 days; Reason: Recheck today's complaints, Re-evaluation by your physician. Problem is an ongoing problem. Symptoms are unchanged. la1
[2019-07-21 21:02] VITALS: BP 132/89; TEMP 98.4; O2SAT 100
== END 2019-07-21 20:54 | disposition home or self-care (01) ==
LOC: ER 18:32
DX: N63.0 Unspecified lump in unspecified breast (principal)
CPT/HCPCS: 99283